=== PATIENT | male | born 1985 | race Caucasian/White ===

== ENCOUNTER 2017-05-13 08:33 | Emergency (ER) | payer MEDICAID ==
[~2017-05-13] VITALS: Ht 177.8 cm; Wt 81.6 kg
[~2017-05-13 08:33] MED LIST: NKM
[2017-05-13 08:58] VITALS: BP 126/77
[2017-05-13 09:38] LABS: EOSINOPHILS % (AUTO) 0.2 % (0.0-3.0); LYMPHOCYTES % (AUTO) 16.9 % (20.0-45.0); MEAN CORPUSCULAR HEMOGLOBIN 31.2 PG (27.0-31.0); MEAN CORPUSCULAR HGB CONC 33.5 G/DL (32.0-36.0); MEAN CORPUSCULAR VOLUME 93 FL (80-99); MEAN PLATELET VOLUME 13.5 FL (6.5-10.1); MONOCYTES % (AUTO) 9.7 % (1.0-10.0); NEUTROPHILS % (AUTO) 72.2 % (45.0-75.0); PLATELET COUNT 194 K/UL (150-450); RED BLOOD COUNT 4.78 M/UL (4.70-6.10); RED CELL DISTRIBUTION WIDTH 10.7 % (11.6-14.8); WHITE BLOOD COUNT 12.5 K/UL (4.8-10.8)
[2017-05-13] MEDS ORDERED: Haloperidol 5mg/ml Inj IM ONE (09:45)
[2017-05-13] MEDS ORDERED: LORazepam Inj 2mg/ml 1ml IM ONE (09:45)
[2017-05-13 09:57] LABS: ALANINE AMINOTRANSFERASE 159 U/L (12-78); ALBUMIN/GLOBULIN RATIO 1.2 (1.0-2.7); ANION GAP 12 (5-15); ASPARTATE AMINO TRANSFERASE 184 U/L (15-37); CALCIUM 9.6 MG/DL (8.5-10.1); CARBON DIOXIDE 24 MMOL/L (21-32); CHLORIDE 99 MMOL/L (98-107); CREATININE 1.4 MG/DL (0.55-1.30); GLOMERULAR FILTRATION RATE 58.7 mL/min (>60); POTASSIUM 3.5 MMOL/L (3.5-5.1); SODIUM 135 MMOL/L (136-145); TOTAL PROTEIN 8.1 G/DL (6.4-8.2)
[2017-05-13 10:00] LABS: ACETAMINOPHEN 0 MCG/ML (10-30); ALCOHOL < 3 mg/dL
[2017-05-13 10:20] LABS: BILIRUBIN,DIRECT 0.2 MG/DL (0.0-0.3)
--- NOTE | 2017-05-13 11:21 | Emergency Room Report ---
History of Present Illness General Chief Complaint: Behavioral Complaint Source: Patient, Family Member (Pepe Rodriguez M.D.) Present Illness HPI 31-year-old male history of schizophrenia and bipolar disorder, brought in by family for abnormal behavior. Family states that patient has not been on meds, cannot get in to see psychiatrist, saw a psychologist one time. States that for the last couple days patient has been very paranoid, states that patient thinks that people are always after him, they couldn't find him last night and found him in a homeless detention Patient currently having rapid speech, states that there are people out to get him, think that the nurse is trying to harm him, denying any SI HI or auditory hallucinations. (Pepe Rodriguez M.D.) Allergies: Coded Allergies: No Known Allergies (Unverified , 04/27/13) Patient History Past Medical History: see triage record Past Surgical History: none Pertinent Family History: none Reviewed Nursing Documentation: PMH: Agreed, PSxH: Agreed (Pepe Rodriguez M.D. ) Nursing Documentation-PMH Past Medical History: No History, Except For History Of Psychiatric Problem: Yes - Schizo-affective disorder, bipolar (Pepe Rodriguez M.D.) Review of Systems All Other Systems: negative except mentioned in HPI (Pepe Rodriguez M.D.) Physical Exam Vital Signs Date Time Temp Pulse Resp B/P (MAP) Pulse Ox O2 Delivery O2 Flow Rate FiO2 05/13/17 08:36 97.9 108 20 126/77 99 Room Air Sp02 EP Interpretation: reviewed, normal General Appearance: alert, GCS 15, non-toxic, moderate distress, other - Paranoid and agitated young male Head: normocephalic, atraumatic Eyes: bilateral eye normal inspection, bilateral eye PERRL, bilateral eye EOMI ENT: normal ENT inspection, normal pharynx, normal voice, moist mucus membranes Neck: normal inspection, full range of motion, supple Respiratory: normal inspection, lungs clear, normal breath sounds, no respiratory distress, no retraction, no wheezing, speaking full sentences, chest symmetrical Cardiovascular #1: normal inspection, regular rate, rhythm, no edema, normal capillary refill Cardiovascular #2: 2+ radial (R), 2+ radial (L) Gastrointestinal: normal inspection, non tender, soft, non-distended, no guarding Genitourinary: no CVA tenderness Musculoskeletal: normal inspection, back normal, normal range of motion, non- tender Neurologic: normal inspection, alert, oriented x3, responsive, motor strength/ tone normal, sensory intact, normal gait, speech normal Psychiatric: memory normal, no suicidal/homicidal ideation, other - Anxious, agitated, hostile toward staff, paranoid Skin: normal inspection, normal color, no rash, warm/dry, well hydrated, normal turgor (RetinoPepe M.D.) Medical Decision Making Diagnostic Impression: Primary Impression: Behavioral change ER Course 31-year-old male with behavioral disorder DDX: Schizophrenia, bipolar Plan: Obtained basic labs, psych consult ER course: Patient was very hostile toward staff, trying to leave, sedated patient with Haldol and Ativan. Family agreed to medication for patient's safety Pending psych eval Disposition: Signed out patient to 31-year-old male with schizophrenia Brought in by family, very paranoid Sedated with Haldol Ativan Pending psych eval (psych contacted and aware) Please note that this Emergency Department Report was dictated using [id number] therapist technology software, occasionally this can lead to erroneous entry secondary to interpretation by the dictation equipment Laboratory Tests Test 05/13/17 09:15 White Blood Count 12.5 K/UL (4.8-10.8) H Red Blood Count 4.78 M/UL (4.70-6.10) Hemoglobin 14.9 G/DL (14.2-18.0) Hematocrit 44.5 % (42.0-52.0) Mean Corpuscular Volume 93 FL (80-99) Mean Corpuscular Hemoglobin 31.2 PG (27.0-31.0) H Mean Corpuscular Hemoglobin Concent 33.5 G/DL (32.0-36.0) Red Cell Distribution Width 10.7 % (11.6-14.8) L Platelet Count 194 K/UL (150-450) Mean Platelet Volume 13.5 FL (6.5-10.1) H Neutrophils (%) (Auto) 72.2 % (45.0-75.0) Lymphocytes (%) (Auto) 16.9 % (20.0-45.0) L Monocytes (%) (Auto) 9.7 % (1.0-10.0) Eosinophils (%) (Auto) 0.2 % (0.0-3.0) Basophils (%) (Auto) 1.0 % (0.0-2.0) Sodium Level 135 MMOL/L (136-145) L Potassium Level 3.5 MMOL/L (3.5-5.1) Chloride Level 99 MMOL/L (98-107) Carbon Dioxide Level 24 MMOL/L (21-32) Anion Gap 12 (5-15) Blood Urea Nitrogen 16 mg/dL (7-18) Creatinine 1.4 MG/DL (0.55-1.30) H Estimate Glomerular Filtration Rate 58.7 mL/min (>60) Glucose Level 106 MG/DL (74-106) Calcium Level 9.6 MG/DL (8.5-10.1) Total Bilirubin 1.1 MG/DL (0.2-1.0) H Direct Bilirubin 0.2 MG/DL (0.0-0.3) Aspartate Amino Transferase (AST) 184 U/L (15-37) H Alanine Aminotransferase (ALT) 159 U/L (12-78) H Alkaline Phosphatase 65 U/L (46-116) Total Protein 8.1 G/DL (6.4-8.2) Albumin 4.4 G/DL (3.4-5.0) Globulin 3.7 g/dL Albumin/Globulin Ratio 1.2 (1.0-2.7) Salicylates Level < 0.2 ug/mL (2.8-20) L Urine Opiates Screen Negative (NEGATIVE) Acetaminophen Level 0 MCG/ML (10-30) L Urine Barbiturates Screen Negative (NEGATIVE) Phencyclidine (PCP) Screen Negative (NEGATIVE) Urine Amphetamines Screen Negative (NEGATIVE) Urine Benzodiazepines Screen Negative (NEGATIVE) Urine Cocaine Screen Negative (NEGATIVE) Urine Marijuana (THC) Screen Positive (NEGATIVE) H Serum Alcohol < 3 mg/dL (Pepe Rodriguez M.D.) ER Course Patient signed out to me at [address] Rodriguez Patient was previously medically cleared - see previous MD note for full history , PE, assessment/plan Was pending Psyc Cx Not on 5150 HOLD Cleared for DC by Dr Rondon, who also requested 50 IM haldol deconate whcih was given in ED Rx provided by Dr Alcon W[facility] home (MOLLY READ M.D.) Last Vital Signs Date Time Temp Pulse Resp B/P (MAP) Pulse Ox O2 Delivery O2 Flow Rate FiO2 05/13/17 08:58 97.9 108 20 126/77 99 Room Air (Pepe Rodriguez M.D.) Status: improved (MOLLY READ M.D.) Disposition: HOME, SELF-CARE Referrals: [facility]ERR[facility] (PCP) Pepe Rodriguez M.D. May 13, 2017 11:21 MOLLY READ M.D. May 13, 2017 15:00
[2017-05-13 11:30] VITALS: BP 115/72
[2017-05-13] MEDS ORDERED: Haloperidol Decanoate 50mg Inj IM ONE (14:45)
[2017-05-13 15:14] VITALS: BP 125/87
[2017-05-13 15:19] VITALS: BP 125/87
--- NOTE | 2017-05-14 00:54 | Consultation ---
Consult Note Consult Note note dictated Saulo Rondon M.D. May 14, 2017 00:54
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
== END 2017-05-13 15:20 | disposition home or self-care (01) ==
LOC: EMR 09:09
DX: F91.9 Conduct disorder, unspecified (principal); F25.0 Schizoaffective disorder, bipolar type
CPT/HCPCS: 36415; 80053; 80300; 80329; 82248; 82962; 85025; 96372; 99284; J1630; J1631